=== PATIENT | female | born 1995 | race Caucasian/White ===

== ENCOUNTER 2016-04-04 21:17 | Emergency (ER) | payer BC ==
[~2016-04-04] VITALS: Ht 182.9 cm; Wt 100.0 kg
[~2016-04-04 21:17] MED LIST: AMOXICILLIN 50500 MG; MIRENA52 MG IY; PROAIR HFA0.09 MG/AC IH; ZOFRAN ODT8 MG PO
[2016-04-04 21:28] VITALS: BP 119/49; TEMP 98.3
[2016-04-04] MEDS ORDERED: NORCO 325 MG-51 TAB PO (21:32)
[2016-04-04] MEDS ORDERED: SMZ/TMPDS (21:33)
[2016-04-04 23:25] VITALS: PULSE 70
== END 2016-04-04 23:25 | disposition home or self-care (01) ==
LOC: COL.ER 21:17
DX: L02.211 Cutaneous abscess of abdominal wall (principal)

== ENCOUNTER 2016-07-27 22:20 | Emergency (ER) | payer BC ==
[~2016-07-27] VITALS: Ht 180.3 cm; Wt 97.7 kg
[~2016-07-27 22:20] MED LIST changes: +NORCO 325 MG-51 TAB PO; +SMZ/TMPDS
[2016-07-27 22:22] VITALS: TEMP 98.4
[2016-07-27 23:17] LABS: BASO # 0.1 (0.0-0.2); BASO % 0.6 % (0.0-2.0); EOS # 0.2 (0.0-0.7); EOS % 1.9 % (0-4.0); GRAN # 5.3 (1.4-6.5); GRAN % 62.4 % (42.2-75.2); HEMOGLOBIN 12.3 g/dl (12.5-16.0); LYMPH # 2.1 (1.2-3.4); LYMPH % 24.8 % (20.0-51.0); MEAN CELL VOLUME 86 fl (80.0-100.0); MEAN CORPUSCULAR HEMOGLOBIN 29 pg (27.0-31.0); MEAN CORPUSCULAR HGB CONC 34 g/dl (33.0-37.0); MEAN PLATELET VOLUME 10.3 fl (7.4-10.4); MONO # 0.9 (0.1-0.6); MONO % 10.2 % (1.7-9.3); PLATELET COUNT 251 K/mm3 (130-400); RED BLOOD COUNT 4.19 M/mm3 (4.10-5.30); WHITE BLOOD COUNT 8.4 K/mm3 (4.8-10.8)
[2016-07-27 23:18] LABS: HEMATOCRIT 36.1 % (37.0-47.0)
[2016-07-27 23:33] LABS: ADJUSTED CALCIUM 9.1 mg/dL (8.4-10.2); BILIRUBIN,TOTAL 0.9 mg/dL (0.0-1.0); CALCIUM 9.1 mg/dL (8.4-10.2); CREATININE, serum 0.73 mg/dL (0.52-1.25); POTASSIUM 3.5 mmol/L (3.4-5.0); TOTAL PROTEIN 6.7 gm/dL (6.4-8.2)
[2016-07-28] MEDS ORDERED: ZOFRAN8 MG PO (01:15)
[2016-07-28] MEDS ORDERED: ULTRAM 50MG TAB50 MG PO (01:15)
[2016-07-28] MEDS ORDERED: FLAGYL500 MG PO (01:15)
[2016-07-28] MEDS ORDERED: CIPRO 500MG TA500 MG PO (01:15)
[2016-07-28 01:38] VITALS: BP 127/82; PULSE 52
== END 2016-07-28 01:40 | disposition home or self-care (01) ==
LOC: COL.ER 22:20
PROVIDERS: Emergency Medicine
DX: K50.00 Crohn's disease of small intestine without complications (principal); J45.909 Unspecified asthma, uncomplicated
CPT/HCPCS: J1170; J1885; J2405; J7030; Q9967